=== PATIENT | male | born 1945 | race Caucasian/White ===

== ENCOUNTER → 2018-06-26 09:19 | Outpatient (CLI) | payer OTHER, SELFPAY ==
--- NOTE | 2018-06-26 | DI.US.S_ITS ---
PROCEDURE: US CAROTID DOPPLER BI INDICATIONS: VISION CHANGES. Hypertension. TECHNIQUE: Color and pulse Doppler interrogation was performed of both carotid systems, with image documentation and velocity measurements. COMPARISON: None. FINDINGS: Stenosis calculations are based on SRU (Society of Radiologists in Ultras[employer]) criteria. The flow velocities and the arterial waveforms are normal within both carotid arterial systems. Atherosclerotic plaque is seen on both sides. The estimated degree of internal carotid artery stenosis is less than 50%. Antegrade flow is confirmed within both vertebral arteries. IMPRESSION: No hemodynamically significant stenosis is seen. Atherosclerotic plaque is noted bilaterally. Dictated by: Hector Vick M.D. on 06/26/2018 at 11:34 Approved by: Hector Vick M.D. on 06/26/2018 at 11:35
== END ==
PROVIDERS: Visit Provider Family Medicine
DX: H53.9 Unspecified visual disturbance (principal); I65.23 Occlusion and stenosis of bilateral carotid arteries; R01.1 Cardiac murmur, unspecified; I10 Essential (primary) hypertension
CPT/HCPCS: 93880

== ENCOUNTER → 2018-07-09 08:43 | Outpatient (CLI) | payer OTHER, SELFPAY ==
--- NOTE | 2018-07-09 | DI.ECHO.S_ITS ---
[facility] +---------+ : : [address] : : : : [place], : : : : [id number] : : : : Phone: [phone] + [facility]-[id number] Echocardiogram Report + + :Name: VANCE HICKS Study Date: 07/09/2018 Height: 72 in : :[facility] Exam Location: [facility] Weight: 160 lb : : Gender: Male BSA: 1.9 m2 : :: 1945 Age: 72 yrs BP: 125/80 mmHg: :Reason For Study: Murmur/ Hypertension : :Ordering Physician: Naif : :Toño Performed By: Giselle Page : + + Interpretation Summary The ejection fraction is estimated to be 60-65%. The aortic valve is not well visualized. There is mild aortic stenosis. The peak aortic velocity is 2.3 m/sec. Consider RAJESH to better evaluate AV if clinically indicated Procedure: A two-dimensional transthoracic echocardiogram with color flow and Doppler was performed. The study quality was technically adequate. There is no prior echocardiogram noted for this patient. The patient was in normal sinus rhythm during the exam. Left Ventricle: There is borderline concentric left ventricular hypertrophy. The left ventricle is normal in size. The ejection fraction is estimated to be 60-65%. There are no focal wall motion abnormalities. Diastolic parameters suggest probable normal left ventricular diastolic function and normal filling pressures. Right Ventricle: The right ventricle is normal in size and function. Atria: The left atrium is moderately dilated. The right atrium is mildly dilated. There is no Doppler evidence for an interatrial shunt. Mitral Valve: The mitral valve is normal in structure and function. There is trace mitral regurgitation. Aortic Valve: The aortic valve is not well visualized. The peak aortic velocity is 2.3 m/sec. The aortic valve mean gradient is 12.7 mmHg. The calculated aortic valve area is 1.7 cm2. There is mild aortic stenosis. Consider RAJESH to better evaluate AV if clinically indicated. There is trace aortic regurgitation. Tricuspid Valve: The tricuspid valve is normal in structure and function. There is a trace or physiologic amount of tricuspid regurgitation. Pulmonary artery pressures cannot be estimated because of the lack of a measurable TR jet velocity. Pulmonic Valve: The pulmonic valve is not well seen, but is grossly normal. There is a trace or physiologic amount of pulmonic regurgitation. Great Vessels: The aortic root is mildly dilated. The ascending aorta could not be visualized. The pulmonary artery is not well visualized, but is probably normal size. The IVC is dilated (diameter is greater than 2.1 cm) yet it collapses greater than 50% with a sniff. This suggests a right atrial pressure of 8 mm Hg. Pericardium/ Pleura There is no pericardial effusion. There is no pleural effusion. MMode/2D Measurements & Calculations LVIDd: 4.3 cm LVOT diam: 2.1 cm LVIDs: 3.1 cm Ao root diam: 4.0 cm IVSd: 1.0 cm LVPWd: 1.0 cm LV roque. diameter/BSA (cm/m^2): 2.2 LV sys. diameter/BSA (cm/m^2): 1.6 FS: 29.0 % EPSS: 0.27 cm LA A2 area: 27.2 cm2 RA long axis: 6.2 cm LA A4 area: 20.3 cm2 RA area: 22.8 cm2 LA length (vol): 5.5 cm RA vol: 71.3 ml LA vol: 85.2 ml RA : 36.8 ml/m2 LA vol index: 44.0 ml/m2 RVD1 (basal): 3.9 cm IVC diam: 2.4 cm RVD2 (mid): 2.4 cm TAPSE: 2.0 cm Doppler Measurements & Calculations Ao V2 max: 232.0 cm/sec LVOT Max Martínez: 112.6 cm/sec Ao V2 mean: 170.7 cm/sec LV V1 max P.1 mmHg Ao V2 VTI: 46.4 cm LV V1 VTI: 22.8 cm Ao max P.5 mmHg Ao mean P.7 mmHg BONG(I,D): 1.7 cm2 MV E max martínez: 56.6 cm/sec BONG(V,D): 1.7 cm2 MV A max martínez: 67.6 cm/sec BONG indexed to BSA (cm^2/m^2): 0.90 MV E/A: 0.84 sev ratio: 0.49 Med Peak E' Martínez: 7.2 cm/sec E/E' med: 7.8 Lat Peak E' Martínez: 8.2 cm/sec E/E' lat: 6.9 E/e' average: 7.4 MV dec time: 0.28 sec PA V2 max: 79.4 cm/sec MV P1/2t: 81.1 msec PA V2 mean: 58.5 cm/sec MVA(P1/2t): 2.7 cm2 PA mean P.4 mmHg PA Accel Time: 0.11 sec SV(LVOT): 80.7 ml Reading Physician:12:59 PM
== END ==
PROVIDERS: Visit Provider Family Medicine
DX: I35.0 Nonrheumatic aortic (valve) stenosis (principal); R01.1 Cardiac murmur, unspecified; I10 Essential (primary) hypertension
CPT/HCPCS: 93306

== ENCOUNTER → 2021-08-10 11:41 | Outpatient (CLI) | payer MEDICARE, OTHER, SELFPAY ==
[2021-08-10 18:26] LABS: Cholesterol 135 mg/dL (140-199); HDL Cholesterol 48 mg/dL (40-60); LDL Cholesterol Calculated 78 mg/dL (<100); Triglycerides 47 mg/dL (35-150)
[2021-08-10 18:42] LABS: Hemoglobin A1C% w Est Avg Glu 5.7 % (4.0-6.0)
[2021-08-10 18:57] LABS: TSH w/ Reflex to FT4 2.14 uIU/mL (0.47-4.68)
[2021-08-10 19:17] LABS: Vitamin B12 274 pg/mL (239-931)
== END ==
PROVIDERS: PCP Family Medicine; Visit Provider Family Medicine
DX: I10 Essential (primary) hypertension (principal); I65.23 Occlusion and stenosis of bilateral carotid arteries; R73.01 Impaired fasting glucose; E78.2 Mixed hyperlipidemia; H53.9 Unspecified visual disturbance; I35.0 Nonrheumatic aortic (valve) stenosis; R41.3 Other amnesia; Z86.73 Personal history of transient ischemic attack (TIA), and cerebral infarction without residual deficits
CPT/HCPCS: 80061; 82607; 83036; 84443

== ENCOUNTER → 2021-10-12 13:22 | Outpatient (CLI) | payer MEDICARE, OTHER, SELFPAY ==
[2021-10-12 20:05] LABS: Cholesterol 117 mg/dL (140-199); HDL Cholesterol 47 mg/dL (40-60); LDL Cholesterol Calculated 62 mg/dL (<100); Triglycerides 40 mg/dL (35-150)
[2021-10-12 20:52] LABS: Vitamin B12 392 pg/mL (239-931)
== END ==
PROVIDERS: PCP Family Medicine; Visit Provider Family Medicine
DX: E78.2 Mixed hyperlipidemia (principal); I10 Essential (primary) hypertension; E53.8 Deficiency of other specified B group vitamins; R41.3 Other amnesia
CPT/HCPCS: 80061; 82607

== ENCOUNTER → 2023-02-05 08:52 | Outpatient (CLI) | payer MEDICARE, OTHER, SELFPAY ==
[2023-02-05 19:19] LABS: Alanine Aminotransferase 22 IU/L (<50); Albumin 3.6 g/dL (3.5-5.0); Albumin Globulin Ratio 1.2 (1.0-2.8); Alkaline Phosphatase 106 U/L (38-126); Aspartate Aminotransferase 37 IU/L (17-59); Bilirubin Total 0.7 mg/dL (0.2-1.3); Blood Urea Nitrogen 21 mg/dL (9-20); Calcium 9.6 mg/dL (8.4-10.2); Carbon Dioxide 31 mmol/L (22-32); Chloride 104 mmol/L (98-107); Cholesterol 197 mg/dL (140-199); Estimated Glomerular Filt Rate > 60 mL/min (>60); Glucose 95 mg/dL (80-110); HDL Cholesterol 46 mg/dL (40-60); HEMOLYSIS < 15 (0-50); LDL Cholesterol Calculated 139 mg/dL (<100); Sodium 139 mmol/L (137-145); Total Protein 6.6 g/dL (6.3-8.2); Triglycerides 60 mg/dL (35-150)
[2023-02-05 19:24] LABS: Add Manual Diff / Slide Review NO; Basophils Absolute Auto 0 /uL (0-100); Basophils Percent Auto 0.5 % (0-2); Eosinophils Absolute Auto 200 /uL (0-450); Eosinophils Percent Auto 2.2 % (2-4); Hemoglobin 12.1 g/dL (13.5-17.5); Lymphocytes Absolute Auto 1300 /uL (1100-4500); Lymphocytes Percent Auto 17.3 % (25-40); Mean Corpuscular HGB Conc 33.5 % (30-36); Mean Corpuscular Hemoglobin 32.9 PG (26-34); Mean Corpuscular Volume 98.2 fL (80-100); Monocytes Absolute Auto 600 /uL (0-900); Monocytes Percent Auto 8.1 % (3-14); Neutrophils Absolute Auto 5200 /uL (1500-7000); Neutrophils Percent Auto 71.9 % (50-75); Platelet Count 247 X10^3/uL (150-400); Red Blood Cell Count 3.66 X10^6/uL (4.5-5.9); Red Cell Distribution Width 13.6 % (11.6-14.8); White Blood Cell Count 7.2 X10^3/uL (4.5-11.0)
[2023-02-05 19:49] LABS: Prostate Specific Antigen Scrn 0.228 ng/mL (0.1-4.0)
[2023-02-05 19:50] LABS: TSH w/ Reflex to FT4 4.13 uIU/mL (0.47-4.68)
[2023-02-05 20:08] LABS: Vitamin B12 627 pg/mL (239-931)
== END ==
PROVIDERS: PCP Family Medicine; Visit Provider Family Medicine
DX: Z12.5 Encounter for screening for malignant neoplasm of prostate (principal); R63.0 Anorexia; E78.2 Mixed hyperlipidemia; F32.9 Major depressive disorder, single episode, unspecified; F01.50 Vascular dementia, unspecified severity, without behavioral disturbance, psychotic disturbance, mood disturbance, and anxiety; R05.3 Chronic cough; E53.8 Deficiency of other specified B group vitamins; Z86.73 Personal history of transient ischemic attack (TIA), and cerebral infarction without residual deficits; I10 Essential (primary) hypertension; R41.3 Other amnesia; I35.0 Nonrheumatic aortic (valve) stenosis; R73.01 Impaired fasting glucose
CPT/HCPCS: 80053; 80061; 82607; 84443; 85025; G0103

== ENCOUNTER → 2024-01-02 10:16 | Outpatient (CLI) | payer MEDICARE, OTHER, SELFPAY ==
[2024-01-02 20:08] LABS: Add Manual Diff / Slide Review NO; Basophils Absolute Auto 100 /uL (0-100); Eosinophils Absolute Auto 100 /uL (0-450); Eosinophils Percent Auto 2.3 % (2-4); Hematocrit 40.1 % (41-53); Hemoglobin 13.3 g/dL (13.5-17.5); Lymphocytes Absolute Auto 1500 /uL (1100-4500); Lymphocytes Percent Auto 23.2 % (25-40); Mean Corpuscular HGB Conc 33.2 % (30-36); Mean Corpuscular Hemoglobin 33.2 PG (26-34); Mean Corpuscular Volume 99.9 fL (80-100); Monocytes Absolute Auto 500 /uL (0-900); Monocytes Percent Auto 8.6 % (3-14); Neutrophils Absolute Auto 4100 /uL (1500-7000); Neutrophils Percent Auto 64.9 % (50-75); Platelet Count 220 X10^3/uL (150-400); Red Blood Cell Count 4.01 X10^6/uL (4.5-5.9); Red Cell Distribution Width 13.6 % (11.6-14.8); White Blood Cell Count 6.3 X10^3/uL (4.5-11.0)
[2024-01-02 20:33] LABS: Blood Urea Nitrogen 24 mg/dL (9-20); Calcium 9.6 mg/dL (8.4-10.2); Carbon Dioxide 27 mmol/L (22-32); Chloride 105 mmol/L (98-107); Cholesterol 205 mg/dL (140-199); Estimated Glomerular Filt Rate > 60 mL/min (>60); Glucose 101 mg/dL (80-110); HDL Cholesterol 48 mg/dL (40-60); HEMOLYSIS 19 (0-50); LDL Cholesterol Calculated 140 mg/dL (<100); Potassium 4.1 mmol/L (3.4-5.1); Sodium 139 mmol/L (137-145); Triglycerides 86 mg/dL (35-150)
== END ==
PROVIDERS: PCP Family Medicine; Visit Provider Family Medicine
DX: F17.200 Nicotine dependence, unspecified, uncomplicated (principal); I10 Essential (primary) hypertension; Z86.73 Personal history of transient ischemic attack (TIA), and cerebral infarction without residual deficits; I35.0 Nonrheumatic aortic (valve) stenosis; E78.2 Mixed hyperlipidemia; I65.23 Occlusion and stenosis of bilateral carotid arteries
CPT/HCPCS: 80048; 80061; 85025

== ENCOUNTER → 2025-01-26 08:27 | Outpatient (CLI) | payer MEDICARE, OTHER, SELFPAY ==
[2025-01-26 19:12] LABS: Add Manual Diff / Slide Review NO; Hematocrit 40.2 % (41-53); Hemoglobin 13.6 g/dL (13.5-17.5); Lymphocytes Absolute Auto 900 /uL (1100-4500); Mean Corpuscular HGB Conc 33.7 % (30-36); Mean Corpuscular Hemoglobin 32.8 PG (26-34); Mean Corpuscular Volume 97.3 fL (80-100); Platelet Count 199 X10^3/uL (150-400)
[2025-01-26 19:37] LABS: Blood Urea Nitrogen 18 mg/dL (9-20); Calcium 9.6 mg/dL (8.4-10.2); Carbon Dioxide 24 mmol/L (22-32); Chloride 108 mmol/L (98-107); Cholesterol 173 mg/dL (140-199); Estimated Glomerular Filt Rate > 60 mL/min (>60); Glucose 97 mg/dL (70-99); HDL Cholesterol 50 mg/dL (40-60); HEMOLYSIS < 15 (0-50); Potassium 3.9 mmol/L (3.4-5.1); Sodium 141 mmol/L (137-145); Triglycerides 59 mg/dL (35-150)
== END ==
PROVIDERS: PCP Family Medicine; Visit Provider Family Medicine
DX: E78.2 Mixed hyperlipidemia (principal); I10 Essential (primary) hypertension; I65.23 Occlusion and stenosis of bilateral carotid arteries; Z86.73 Personal history of transient ischemic attack (TIA), and cerebral infarction without residual deficits
CPT/HCPCS: 80048; 80061; 85025